=== PATIENT | female | born 1995 | race African-American/Black ===

== ENCOUNTER 2017-08-10 14:10 | Emergency (ER) | payer BC ==
[2017-08-10 14:39] VITALS: BP 126/77
--- NOTE | 2017-08-10 15:12 | UC ---
Ear Complaint HPI - HPI Summary HPI Summary: 22 y/o female present to the urgent care c/o Rt ear pain since last 03/2017. Pt states she noticed yellowish ear drainage this morning. Pain is 8/ 10. She has not taking anything to alleviate symptoms. She reports she usually has B/L ear dryness with itchiness and she has placed olive oil as per pipe coverer helper advised. Pain is 8/10. Pt denies fever, dizziness, N/V/D, PIZANO, chest pain, SOB. - History of Current Complaint Chief Complaint: UCEar Stated Complaint: EAR ACHE Time Seen by Provider: 08/10/17 15:02 Hx Obtained From: Patient Hx Last Menstrual Period: 07/20/17 ?: No Onset/Duration: Gradual Onset, Lasting Days - 4 days, Still Present Severity Initially: Mild Severity Currently: Moderate Pain Intensity: 8 Pain Scale Used: 0-10 Numeric Alleviating Factors: Nothing Associated Signs/Symptoms: Positive: Discharge - yellowish - Allergies/Home Medications Allergies/Adverse Reactions: Allergies Allergy/AdvReac Type Severity Reaction Status Date / Time No Known Allergies Allergy Verified 07/19/13 18:17 PMH/Surg Hx/FS Hx/Imm Hx Previously Healthy: Yes - Pt denies PMHX - Surgical History Surgical History: None - Family History Known Family History: Positive: Hypertension - Social History Occupation: Employed Full-time Lives: With Family Alcohol Use: Occasionally Substance Use Type: None Smoking Status (MU): Never Smoked Tobacco Review of Systems Constitutional: Negative Skin: Negative Eyes: Negative ENT: Ear Ache - RT ear pain with yellowish ear drainage Respiratory: Negative Cardiovascular: Negative Gastrointestinal: Negative Genitourinary: Negative Motor: Negative Neurovascular: Negative Musculoskeletal: Negative Neurological: Negative Psychological: Negative Is Patient Immunocompromised?: No All Other Systems Reviewed And Are Negative: Yes Physical Exam Triage Information Reviewed: Yes Appearance: Well-Appearing, No Pain Distress, Well-Nourished Vital Signs: Initial Vital Signs Temp 99.2 F 08/10/17 14:36 Pulse 78 08/10/17 14:36 Resp 18 08/10/17 14:36 BP 126/77 08/10/17 14:36 Pulse Ox 99 08/10/17 14:36 Vital Signs Reviewed: Yes Eyes: Positive: Conjunctiva Clear - PERRLA, EOMI, fundi grossly normal ENT: Positive: Normal ENT inspection, Hearing grossly normal, Pharynx normal, TM red - RT exteranl ear canal with yellowish drainage, no erythema, RT TM with moderate erythema and purulant yellowish discharge. Tenderness to palpation over preauricular lymphnode and RT anterior cervical lymphnode.. Negative: Nasal congestion, Nasal drainage, Trismus Neck exam: Normal Neck: Positive: Supple, Nontender Respiratory: Positive: Chest non-tender, Lungs clear, Normal breath sounds. Negative: No respiratory distress Cardiovascular Exam: Normal Cardiovascular: Positive: RRR, No Murmur, Pulses Normal, Brisk Capillary Refill Abdomen Description: Positive: Nontender, No Organomegaly, Soft. Negative: CVA Tenderness (R), CVA Tenderness (L) Bowel Sounds: Positive: Present Musculoskeletal: Positive: Strength Intact, ROM Intact, No Edema Neurological: Positive: Alert, Muscle Tone Normal Psychological Exam: Normal Psychological: Positive: Normal Response To Family Skin Exam: Normal Ear Complaint Course/Dx - Course Course Of Treatment: 22 y/o female present to the urgent care c/o Rt ear pain since last 08/07/2017. Pt states she noticed yellowish ear drainage this morning. Pain is 8/10. She has not taking anything to alleviate symptoms. She reports she usually has B/L ear dryness with itchiness and she has placed olive oil as per pipe coverer helper advised. Pain is 8/10. Pt denies fever, dizziness, N/V/D, PIZANO, chest pain, SOB. Hx obtained. Pt with Acute Rt otitis media on examination. Pt Rx Amoxicillin PO and Ibuprofen PO for pain. Pt advised if not improvement of symptoms to return to the urgent care or f/u with her PCP for further treatment. Pt understood and agreed with plan of care. - Differential Dx/Diagnosis Differential Diagnosis/HQI/PQRI: Cerumen Impaction, Mastoiditis, Otitis Externa , Otitis Media, Perforated TM, TMJ Syndrome, URI Provider Diagnoses: 1- Acute Rt otitis Media Discharge - Discharge Plan Condition: Stable Disposition: HOME Prescriptions: Amoxicillin PO (*) [Amoxicillin 875 MG (*)] 875 mg PO BID #20 tab Ibuprofen TAB* [Motrin TAB* 800 MG] 800 mg PO Q6H #30 tab Patient Education Materials: Otitis Media (ED) Forms: *Work Release Referrals: Jeff Harris MD [Primary Care Provider] - If Needed Additional Instructions: 1-Please take full course of antibiotic as directed to avoid resistance. 2-Take ibuprofen PO after meals for pain and swelling 3-If symptoms do not improve or worsen please f/u with your PCP or return to the urgent care for further evaluation and treatment.
== END 2017-08-10 15:32 | disposition home or self-care (01) ==
LOC: UCEAST 14:10
DX: H66.91 Otitis media, unspecified, right ear (principal)
CPT/HCPCS: 99212; G0463

== ENCOUNTER 2018-09-19 14:31 | Emergency (ER) | payer BC ==
[2018-09-19 16:04] VITALS: BP 142/82
--- NOTE | 2018-09-19 16:14 | UC ---
Throat Pain/Nasal Alvin HPI - HPI Summary HPI Summary: 23 y/o female presents to the urgent care c/o sore throat for the past 2 days. Pt states she noted white lines in her throat. Pt states pain w/ swallowing is 5 /10. She took Ibuprofen PO last night to alleviate symptoms. She also has clear nasal discharge and mild congestion w/ B/L ear pressure. Pt denies fever, body aches, PIZANO, cough, SOB, chest pain, abdominal pain, N/V/D. - History of Current Complaint Chief Complaint: UCRespiratory Stated Complaint: SORE THROAT Time Seen by Provider: 09/19/18 16:11 Hx Obtained From: Patient Hx Last Menstrual Period: 09/04/18 Onset/Duration: Gradual Onset, Lasting Days - 2 days, Still Present, Worse Since - yesterday Severity: Moderate Pain Intensity: 5 Pain Scale Used: 0-10 Numeric Cough: None Associated Signs & Symptoms: Positive: Dysphagia, Sinus Discomfort, Nasal Discharge - clear. Negative: Wheezing, Fever, Rash - Epiglottits Risk Factors Epiglottis Risk Factors: Negative - Allergies/Home Medications Allergies/Adverse Reactions: Allergies Allergy/AdvReac Type Severity Reaction Status Date / Time No Known Allergies Allergy Verified 09/19/18 16:04 Home Medications: Home Medications Desogestrel-Ethinyl Estradiol [Kenzieer 28 Day Tablet] 1 tab PO 09/19/18 [History ] PMH/Surg Hx/FS Hx/Imm Hx Previously Healthy: Yes - Pt denies PMHX - Surgical History Surgical History: None - Family History Known Family History: Positive: Hypertension - Social History Occupation: Employed Full-time Lives: With Family Alcohol Use: Occasionally Substance Use Type: None Smoking Status (MU): Never Smoked Tobacco Review of Systems All Other Systems Reviewed And Are Negative: Yes Constitutional: Positive: Negative Skin: Positive: Negative Eyes: Positive: Negative ENT: Positive: Sore Throat, Ear Ache - b/L ear pressure, Nasal Discharge - clear , Sinus Congestion Respiratory: Positive: Negative Cardiovascular: Positive: Negative Gastrointestinal: Positive: Negative Genitourinary: Positive: Negative Motor: Positive: Negative Neurovascular: Positive: Negative Musculoskeletal: Positive: Negative Neurological: Positive: Negative Psychological: Positive: Negative Is Patient Immunocompromised?: No Physical Exam - Summary Physical Exam Summary: VITAL SIGNS: Reviewed. GENERAL: Patient is a well developed and nourished female who is sitting comfortable in the examining table. Patient is not in any acute respiratory distress. HEAD AND FACE: No signs of trauma. No ecchymosis, hematomas or skull depressions. No sinus tenderness. EYES: PERRLA, EOMI x 2, No injected conjunctiva, no nystagmus. No photophobia. EARS: Hearing grossly intact. Ear canals and tympanic membranes are within normal limits. MOUTH: Positive pharynx with erythema, exudates, palatal petechiae. B/L tonsillar enlargement with exudate. Uvula in midline. NECK: Supple, trachea is midline, Positive anterior cervical lymphadenopathy, no JVD, no carotid bruit, no c-spine tenderness, neck with full ROM. No meningeal signs, no Kernig's or brudzinskis signs. CHEST: Symmetric, no tenderness at palpation LUNGS: Clear to auscultation bilaterally. No wheezing or crackles. CVS: Regular rate and rhythm, S1 and S2 present, no murmurs or gallops appreciated. ABDOMEN: Soft, non-tender. No signs of distention. No rebound no guarding, and no masses palpated. Bowel sounds are normal. EXTREMITIES: FROM in all major joints, no edema, no cyanosis or clubbing. NEURO: Alert and oriented x 3. No acute neurological deficits. Speech is normal and follows commands. SKIN: Dry and warm Triage Information Reviewed: Yes Vital Signs: Initial Vital Signs Temp 98.3 F 09/19/18 16:00 Pulse 92 09/19/18 16:00 Resp 18 09/19/18 16:00 BP 142/82 09/19/18 16:00 Pulse Ox 100 09/19/18 16:00 Throat Pain/Nasal Course/Dx - Course Course Of Treatment: 23 y/o female presents to the urgent care c/o sore throat for the past 2 days. Pt states she noted white lines in her throat. Pt states pain w/ swallowing is 5/10. She took Ibuprofen PO last night to alleviate symptoms. She also has clear nasal discharge and mild congestion w/ B/L ear pressure. Pt denies fever, body aches, PIZANO, cough, SOB, chest pain, abdominal pain, N/V/D. Hx obtained. Pt w/ pharyngitis on examination. Rapid strep ordered , result: negative. Viral pharyngitis.Pt Rx ibuprofen PO to alleviates symptoms of pain and swelling. Advised on hand washing to avoid spreading. Pt advised to rest, eat well and avoid strenuous exercise. If symptoms do not improve or worsen advised to return to the urgent care or f/u with her PCP for further evaluation and treatment. Pt's BP is elevated today advised to decrease salt in diet, monitor BP and f/u with PCP for further management. Pt understood and agreed w/ plan of care - Differential Dx/Diagnosis Differential Diagnosis/HQI/PQRI: Laryngitis, Mononucleosis, Otitis Media, Pharyngitis, Sinusitis, Tonsillitis, URI Provider Diagnoses: 1- Pharyngitis. 2- Elevated BP w/o Hx of HTN Discharge - Sign-Out/Discharge Documenting (check all that apply): Patient Departure - d/c home All imaging exams completed and their final reports reviewed: No Studies - Discharge Plan Condition: Stable Disposition: HOME Prescriptions: Ibuprofen TAB* [Motrin TAB* 800 MG] 800 mg PO Q6H PRN #30 tab PRN Reason: Sore Throat Patient Education Materials: Pharyngitis (ED), Low-Sodium Diet (ED) Referrals: [facility] [Outside] - 3 Days Additional Instructions: 1-Please take ibuprofen PO q6-8hrs prn as instructed after meals to alleviate pain and swelling. Increase fluid intake, eat well, rest and avoid strenuous exercise 2-If symptoms do not improve or worsen please return to the urgent care or f/u with your PCP in 3 days for further evaluation and treatment. 3-Your BP is elevated today. please decrease salt in your diet, monitor BP and if it continues to be elevated please f/u with your PCP for further management - Billing Disposition and Condition Condition: STABLE Disposition: Home
== END 2018-09-19 16:49 | disposition home or self-care (01) ==
LOC: UCEAST 14:31
DX: J02.9 Acute pharyngitis, unspecified (principal); I10 Essential (primary) hypertension
CPT/HCPCS: 87651; 99212; G0463